=== PATIENT | female | born 1960 | race Caucasian/White ===

== ENCOUNTER → 2016-02-22 | Outpatient (REF) | payer OTHER ==
[2016-02-22 12:26] LABS: THYROXINE (T4) 8.2 UG/DL (4.5-12.0)
== END ==
LOC: M SFHCCLAY 09:21
PROVIDERS: ATTEND Family Medicine
DX: E03.9 Hypothyroidism, unspecified (principal)

== ENCOUNTER → 2016-04-11 | Outpatient (CLI) | payer OTHER ==
--- NOTE | 2016-04-11 09:26 | REPMRS ---
Patient History The patient states she had a clinical breast exam in Patient is postmenopausal and had first child at age 36. Family history of ovarian cancer in mother at age 55 and breast cancer in paternal cousin at age 50 or over. Benign stereotatic breast biopsy of the left breast, October 14, 2008. Benign stereotatic breast biopsy of the right breast, 1998. Digital Woman Screen Mammo: April 11, 2016 - Exam #: [id number] Bilateral CC and MLO view(s) were taken. Technologist: Genna Santamaria, Technologist Prior study comparison: April 08, 2015, digital woman screen mammo performed at [facility]. April 07, 2014, digital woman screen mammo performed at [facility]. FINDINGS: There are scattered fibroglandular densities. There has been no change in the appearance of the mammogram from the prior studies. There is a mild amount of residual fibroglandular tissue which is fairly symmetric. There is no interval development of dominant mass, architectural distortion, or clustered microcalcification suggestive of malignancy. Single stereotactic clip in UOQ right breast and noon position left breast. Scattered lymph nodes are seen in the axilla.There are scattered, small, benign calcifications of doubtful clinical significance. No significant changes when compared with prior studies. ASSESSMENT: BI-RADS/ACR category 2 mammogram. Benign finding(s). Recommendation Routine screening mammogram in 1 year (for women over age 40). This mammogram was interpreted with the aid of an FDA-approved computer-aided dectection system. A. Negative x-ray reports should not delay biopsy if a dominant or clinically suspicious mass is present. B. Four to eight percent of cancers are not identified by mammography. C. Adenosis and dense breast may obscure an underlying neoplasm. Electronically Signed By: Malcolm Downey MD 04/11/16 0995
== END ==
LOC: M WHC 08:32
PROVIDERS: ATTEND Obstetrics & Gynecology
DX: Z01.419 Encounter for gynecological examination (general) (routine) without abnormal findings (principal); Z80.3 Family history of malignant neoplasm of breast

== ENCOUNTER → 2016-08-24 | Outpatient (REF) | payer OTHER | LOC: M SFHCCLAY 09:20 | PROVIDERS: ATTEND Family Medicine | DX: E03.9 Hypothyroidism, unspecified (principal) ==

== ENCOUNTER → 2017-04-16 | Outpatient (CLI) | payer OTHER | LOC: M WHC 08:03 | DX: Z01.419 Encounter for gynecological examination (general) (routine) without abnormal findings (principal); Z12.31 Encounter for screening mammogram for malignant neoplasm of breast ==

== ENCOUNTER → 2017-08-30 | Outpatient (REF) | payer OTHER | LOC: M SFHCCLAY 07:59 | DX: E03.9 Hypothyroidism, unspecified (principal) | CPT/HCPCS: 84443 ==

== ENCOUNTER → 2018-04-17 | Outpatient (CLI) | payer OTHER ==
--- NOTE | 2018-04-17 09:50 | REPMRS ---
Patient History The patient states she had a clinical breast exam in 03/2018. Patient is postmenopausal and had first child at age 36. Family history of ovarian cancer at age 55 in mother, breast cancer at age 50 or over in paternal cousin. Benign stereotatic breast biopsy of the left breast, October 14, 2008. Benign stereotatic breast biopsy of the right breast, 1998. No Hormone Replacement Therapy Digital Woman Screen Mammo: April 17, 2018 - Exam #: [id number] Bilateral CC and MLO view(s) were taken. Technologist: Madeleine Chambers, Technologist Prior study comparison: April 16, 2017, digital woman screen mammo performed at [facility]. April 11, 2016, digital woman screen mammo performed at [facility]. April 08, 2015, digital woman screen mammo performed at [facility]. FINDINGS: There are scattered fibroglandular densities. There has been no change in the appearance of the mammogram from the prior studies. There is a mild amount of scattered fibroglandular density which is fairly symmetric. There is no interval development of dominant mass, architectural distortion, or clustered microcalcification suggestive of malignancy. Assessment: BI-RADS/ACR category 2 mammogram. Benign Findings. Recommendation Routine screening mammogram of both breasts in 1 year (for women over age 40). This patient's Lifetime Breast Cancer RIsk is estimated at 11.8 %. This mammogram was interpreted with the aid of an FDA-approved computer-aided dectection system. Electronically Signed By: Al Fuentes MD 04/17/18 0912
== END ==
LOC: M WHC 08:16
PROVIDERS: ATTEND Obstetrics & Gynecology
DX: Z12.31 Encounter for screening mammogram for malignant neoplasm of breast (principal)

== ENCOUNTER → 2018-10-24 | Outpatient (CLI) | payer OTHER ==
--- NOTE | 2018-10-24 11:07 | REP ---
Clinical: Pain. Technique: AP, lateral, bilateral oblique views of the left first digit. Findings: Age-related degenerative changes are appreciated including increased sclerosis at the proximal and distal interphalangeal joints as well as increased sclerosis, subchondral heterogeneity and subtle cystic changes as well as joint space narrowing and mild subluxation at the first carpometacarpal joint. Impression: Arthritic changes primarily involving the carpometacarpal joint. Electronically Signed by Thor Freeman MD 10/24/2018 10:59 A
== END ==
LOC: M CLY 10:32
PROVIDERS: ATTEND Family Medicine
DX: M25.542 Pain in joints of left hand (principal)

== ENCOUNTER → 2018-10-24 | Outpatient (REF) | payer OTHER ==
[2018-10-24 17:04] LABS: ALBUMIN 3.8 GM/DL (3.2-5.2); ALT/SGPT 17 U/L (12-78); BILIRUBIN,TOTAL 0.9 MG/DL (0.2-1.0); BLOOD UREA NITROGEN 18 MG/DL (7-18); CALCIUM LEVEL 9.3 MG/DL (8.8-10.2); CARBON DIOXIDE LEVEL 30 MEQ/L (21-32); CHLORIDE LEVEL 104 MEQ/L (98-107); CHOLESTEROL LEVEL 218 MG/DL (<200); CHOLESTEROL RISK RATIO 3.758 (<5); CREATININE FOR GFR 0.96 MG/DL (0.55-1.30); GLOMERULAR FILTRATION RATE > 60.0 (>45); GLUCOSE, FASTING 95 MG/DL (70-100); HDL CHOLESTEROL 58 MG/DL (>40); LDL CHOLESTEROL 130 MG/DL (<100); NON-HDL-C 160 MG/DL; POTASSIUM SERUM 4.4 MEQ/L (3.5-5.1); SODIUM LEVEL 139 MEQ/L (136-145); TRIGLYCERIDES LEVEL 152 MG/DL (<150)
== END ==
LOC: M SFHCCLAY 10:04
PROVIDERS: ATTEND Family Medicine
DX: E03.9 Hypothyroidism, unspecified (principal); R03.0 Elevated blood-pressure reading, without diagnosis of hypertension; M25.542 Pain in joints of left hand
CPT/HCPCS: 73140; 80053; 80061; 84443; G0463

== ENCOUNTER → 2019-04-22 | Outpatient (CLI) | payer OTHER ==
--- NOTE | 2019-04-22 10:09 | REPMRS ---
Patient History The patient states she had a clinical breast exam in March 2019. Family history of ovarian cancer at age 55 in mother, breast cancer at age 50 or over in paternal cousin. Benign stereotatic breast biopsy of the left breast, October 14, 2008. Benign stereotatic breast biopsy of the right breast, 1998. No Hormone Replacement Therapy Digital Woman Screen Mammo: April 22, 2019 - Exam #: [id number] Bilateral CC and MLO view(s) were taken. Technologist: Melly An, Technologist Prior study comparison: April 17, 2018, bilateral digital woman screen mammo performed at [facility]. April 16, 2017, digital woman screen mammo performed at [facility]. April 11, 2016, digital woman screen mammo performed at [facility]. FINDINGS: There are scattered fibroglandular densities. There is a stereotactic needle biopsy marker clip again noted in the upper outer quadrant on the right at approximately the 12 o'clock position on the left. A stable nodular opaque opacity is seen in the right breast adjacent to the marker clip unchanged from multiple prior studies dating back to 2008.There is a moderate amount of residual fibroglandular tissue which is fairly symmetric. There is no interval development of dominant mass, architectural distortion, or grouped microcalcification typical of maligna ncy. There has been no change in the appearance of the mammogram from the prior studies. 3-D tomosynthesis shows no additional findings. Assessment: BI-RADS/ACR category 2 mammogram. Benign Findings. Recommendation Routine screening mammogram of both breasts in 1 year (for women over age 40). This patient's Lifetime Breast Cancer RIsk is estimated at 11.4 %. This mammogram was interpreted with the aid of an FDA-approved computer-aided dectection system. Electronically Signed By: Al Fuentes MD 04/22/19 0938
--- NOTE | 2019-04-29 13:37 | DEXA ---
AP SPINE L1 - L4 0.870 -2.6 -1.4 LT FEMUR TOTAL 0.767 -1.9 -0.9 LT NECK 0.796 -1.7 -0.5 RT FEMUR TOTAL 0.783 -1.8 -0.8 RT NECK 0.784 -1.8 -0.6 TOTAL BODY TOTAL OTHER COMMENTS: There is low bone density of the hips. There is osteoporosis of the spine. The density of the spine has decreased 6.8% since the initial exam on 09/04/2008. The spine density has increased 0.7% since the most recent exam on 04/13/2011. The density of the left hip has decreased 12.1% since the initial exam on 09/04/2008. The density of the left hip has decreased 9.9% since the most recent exam on 04/13/2011. The density of the right hip has decreased 12.2% since the initial exam on 09/04/2008. The density of the right hip has decreased 9.6% since the most recent exam on 04/13/2011. FOLLOW-UP: Recommendation for the next bone density exam: 2 years. ASYA
== END ==
LOC: M WHC 07:56
PROVIDERS: ATTEND Obstetrics & Gynecology
DX: Z12.31 Encounter for screening mammogram for malignant neoplasm of breast (principal); Z80.41 Family history of malignant neoplasm of ovary; Z80.3 Family history of malignant neoplasm of breast; M81.0 Age-related osteoporosis without current pathological fracture; M85.852 Other specified disorders of bone density and structure, left thigh; M85.851 Other specified disorders of bone density and structure, right thigh

== ENCOUNTER → 2019-09-19 | Outpatient (CLI) | payer SELFPAY | LOC: M LABSMTC 13:20 | PROVIDERS: ATTEND Pediatrics | DX: Z11.59 Encounter for screening for other viral diseases (principal); Z20.828 Contact with and (suspected) exposure to other viral communicable diseases | CPT/HCPCS: C9803; U0003 ==

== ENCOUNTER → 2019-11-21 | Outpatient (REF) | payer OTHER ==
[2019-11-21 12:40] LABS: BASO # 0.1 10^3/uL (0.0-0.2); EOS # 0.3 10^3/uL (0.0-0.5); EOS % 2.8 % (0.0-3.0); HEMATOCRIT 41.6 % (36.0-47.0); HEMOGLOBIN 14.1 g/dl (12.0-15.5); LYMPH # 2.5 10^3/uL (1.5-5.0); LYMPH % 26.2 % (24.0-44.0); MEAN CORPUSCULAR HEMOGLOBIN 31.3 pg (27.0-33.0); MEAN CORPUSCULAR HGB CONC 33.9 g/dl (32.0-36.5); MEAN CORPUSCULAR VOLUME 92.4 fl (80.0-96.0); MONO # 0.7 10^3/uL (0.0-0.8); MONO % 7.7 % (0.0-5.0); NEUTROPHILS # 5.9 10^3/uL (1.5-8.5); PLATELET COUNT, AUTOMATED 328 10^3/uL (150-450); WHITE BLOOD COUNT 9.4 10^3/uL (4.0-10.0)
[2019-11-21 13:25] LABS: ALBUMIN 3.7 GM/DL (3.2-5.2); ALT/SGPT 19 U/L (12-78); BILIRUBIN,TOTAL 1.4 MG/DL (0.2-1.0); BLOOD UREA NITROGEN 23 MG/DL (7-18); CALCIUM LEVEL 9.5 MG/DL (8.8-10.2); CARBON DIOXIDE LEVEL 31 MEQ/L (21-32); CHLORIDE LEVEL 104 MEQ/L (98-107); CHOLESTEROL LEVEL 211 MG/DL (<200); CHOLESTEROL RISK RATIO 3.246 (<5); CREATININE FOR GFR 0.97 MG/DL (0.55-1.30); GLOMERULAR FILTRATION RATE > 60.0 (>45); GLUCOSE, FASTING 105 MG/DL (70-100); HDL CHOLESTEROL 65 MG/DL (>40); LDL CHOLESTEROL 127 MG/DL (<100); NON-HDL-C 146 MG/DL; POTASSIUM SERUM 4.2 MEQ/L (3.5-5.1); SODIUM LEVEL 139 MEQ/L (136-145); TOTAL PROTEIN 6.9 GM/DL (6.4-8.2); TRIGLYCERIDES LEVEL 93 MG/DL (<150)
== END ==
LOC: M SFHCCLAY 08:24
PROVIDERS: ATTEND Family Medicine
DX: E03.9 Hypothyroidism, unspecified (principal); R03.0 Elevated blood-pressure reading, without diagnosis of hypertension; M25.562 Pain in left knee; M17.12 Unilateral primary osteoarthritis, left knee; M85.862 Other specified disorders of bone density and structure, left lower leg
CPT/HCPCS: 73564; 80053; 80061; 84443; 85025; G0463

== ENCOUNTER → 2019-11-21 | Outpatient (CLI) | payer OTHER ==
--- NOTE | 2019-12-01 17:05 | REP ---
LEFT KNEE SERIES: 5-VIEWS HISTORY: Pain in the left knee. No trauma or injury. FINDINGS: Five views of the left knee show mild diffuse osteopenia. There is osteoarthritic sclerosis and mild joint space narrowing in the lateral compartment. Mild medial compartment spurring is seen. There is early osteophytic lipping at the articular margins of the patella. No evidence of joint effusion or fracture seen. IMPRESSION: Mild three-compartment osteoarthritic changes. Diffuse osteopenia. No acute bony abnormality. MTDD
== END ==
LOC: M CLY 08:48
PROVIDERS: ATTEND Family Medicine
DX: M25.562 Pain in left knee (principal)

== ENCOUNTER → 2020-02-26 | Outpatient (CLI) | payer OTHER ==
--- NOTE | 2020-02-26 12:00 | REP ---
INDICATION: ACUTE PAIN OF RIGHT KNEE COMPARISON: None. TECHNIQUE: AP, lateral, bilateral oblique and sunrise views. FINDINGS: Mild tricompartmental degenerative changes are appreciated without obvious acute fracture or dislocation. Lateral view suggests suprapatellar effusion of uncertain etiology. No subcutaneous emphysema or foreign body. IMPRESSION: Moderate suprapatellar effusion suggested. No acute fracture or dislocation. <Electronically signed by Thor Freeman > 02/26/20 1157
== END ==
LOC: M CLY 11:36
PROVIDERS: ATTEND Family Medicine
DX: M25.461 Effusion, right knee (principal)

== ENCOUNTER → 2020-02-26 | Outpatient (REF) | payer OTHER ==
[2020-02-26 16:17] LABS: BASO # 0.1 10^3/uL (0.0-0.2); BASO % 0.9 % (0.0-1.0); EOS # 0.2 10^3/uL (0.0-0.5); EOS % 2.4 % (0.0-3.0); HEMATOCRIT 41.9 % (36.0-47.0); HEMOGLOBIN 14.1 g/dl (12.0-15.5); LYMPH # 2.8 10^3/uL (1.5-5.0); LYMPH % 28.2 % (24.0-44.0); MEAN CORPUSCULAR HEMOGLOBIN 31.5 pg (27.0-33.0); MEAN CORPUSCULAR HGB CONC 33.7 g/dl (32.0-36.5); MEAN CORPUSCULAR VOLUME 93.7 fl (80.0-96.0); MONO # 0.8 10^3/uL (0.0-0.8); MONO % 8.3 % (0.0-5.0); NEUTROPHILS # 5.9 10^3/uL (1.5-8.5); PLATELET COUNT, AUTOMATED 340 10^3/uL (150-450); RED BLOOD COUNT 4.47 10^6/uL (4.00-5.40); WHITE BLOOD COUNT 9.9 10^3/uL (4.0-10.0)
[2020-02-26 16:50] LABS: ALT/SGPT 32 U/L (12-78); BILIRUBIN,TOTAL 0.8 MG/DL (0.2-1.0); BLOOD UREA NITROGEN 28 MG/DL (7-18); CALCIUM LEVEL 9.9 MG/DL (8.8-10.2); CARBON DIOXIDE LEVEL 33 MEQ/L (21-32); CHLORIDE LEVEL 107 MEQ/L (98-107); CREATININE FOR GFR 0.98 MG/DL (0.55-1.30); GLOMERULAR FILTRATION RATE > 60.0 (>45); GLUCOSE, FASTING 86 MG/DL (70-100); POTASSIUM SERUM 4.1 MEQ/L (3.5-5.1); SODIUM LEVEL 140 MEQ/L (136-145); TOTAL PROTEIN 7.2 GM/DL (6.4-8.2); URIC ACID 5.1 MG/DL (2.6-6.0)
[2020-02-26 18:05] LABS: ERYTHROCYTE SEDIMENTATION RATE 39 mm/hr (0-30)
[2020-03-01 06:06] LABS: ANA (HEP2) Negative (.); CYCLIC CITRULLINATED PEPTIDE 7 units (0-19)
== END ==
LOC: M SFHCCLAY 11:26
PROVIDERS: ATTEND Family Medicine
DX: M25.561 Pain in right knee (principal); M25.562 Pain in left knee; M25.542 Pain in joints of left hand; M25.461 Effusion, right knee
CPT/HCPCS: 73564; 80053; 84550; 85025; 85652; 86038; 86140; 86200; G0463

== ENCOUNTER → 2020-04-22 | Outpatient (CLI) | payer OTHER ==
--- NOTE | 2020-04-22 10:46 | REP ---
INDICATION: Z12.31 SCREENING MAMMO. COMPARISON: 04/22/2019 as well as other prior exams. TECHNIQUE: MLO and CC views bilateral breasts with tomosynthesis. FINDINGS: Moderate heterogeneous fibroglandular tissue is present bilaterally. Parenchymal pattern is unchanged. Biopsy clip is again seen in the anterior lateral right breast and upper outer quadrant left breast. There is no new mass or architectural distortion. However there are tiny calcifications in the medial right breast for which magnification views are recommended. The Volpara volumetric breast density pattern is B. IMPRESSION: BIRADS/ACR category 0, incomplete. Tiny calcifications medial right breast. Recommend magnification views to further evaluate This patient's Tyrer-Cuzick lifetime breast cancer risk assessment score is 11.1%. This mammogram was interpreted with the aid of an FDA-approved computer-aided detection system. The patient states she had a clinical breast exam in March 2020. The patient letter being requested is M0. RECOMMENDATION: Recommend magnification views right breast as discussed above. <Electronically signed by Maxwell Rutherford > 04/22/20 [id number]
== END ==
LOC: M WHC 08:01
PROVIDERS: ATTEND Obstetrics & Gynecology
DX: Z12.31 Encounter for screening mammogram for malignant neoplasm of breast (principal); N63.15 Unspecified lump in the right breast, overlapping quadrants

== ENCOUNTER → 2020-05-10 | Outpatient (CLI) | payer OTHER ==
--- NOTE | 2020-05-10 09:43 | REP ---
INDICATION: ADDL VIEWS/RIGHT BREAST/CALC. Microcalcifications observed on the screening study from April 22, 2020. Diagnostic imaging was recommended. COMPARISON: Comparison mammography April 22, 2020 and April 22, 2019. TECHNIQUE: Magnified focal spot-compression CC, mL, and MLO views of the right breast are obtained. 3D tomography in the medial-lateral plane is utilized. This mammogram was interpreted with the aid of an FDA-approved computer-aided detection system. FINDINGS: Scattered fibroglandular elements are seen. Magnified views confirm the presence of a grouping of 5-6 slightly coarse microcalcifications in the superomedial quadrant of the right breast there are other similar non grouped calcifications elsewhere bilaterally which are not felt to be suspicious. This grouping of 5-6 calcifications merit some suspicion however. There is a marker clip in the right breast more anteriorly and laterally from a previous benign biopsy. IMPRESSION: BIRADS/ACR category 4 suspicious right breast mammographic . Grouping of microcalcifications superomedial quadrant. Suspicious abnormality, biopsy should be considered.. This patient's Tyrer-Cuzick lifetime breast cancer risk assessment score is 11.1%. RECOMMENDATION: Stereotactic needle biopsy recommended right breast with clip placement and post clip placement right breast mammography.. The patient letter being requested is M4. <Electronically signed by Al Fuentes > 05/10/20 [id number]
== END ==
LOC: M WHC 08:59
PROVIDERS: ATTEND Obstetrics & Gynecology
DX: R92.1 Mammographic calcification found on diagnostic imaging of breast (principal)
CPT/HCPCS: 77065; G0279

== ENCOUNTER → 2020-11-19 | Outpatient (REF) | payer OTHER ==
[2020-11-19 15:19] LABS: BASO # 0.1 10^3/uL (0.0-0.2); BASO % 1.3 % (0.0-1.0); EOS # 0.3 10^3/uL (0.0-0.5); EOS % 3.5 % (0.0-3.0); HEMATOCRIT 42.2 % (36.0-47.0); HEMOGLOBIN 14.4 g/dl (12.0-15.5); LYMPH # 2.4 10^3/uL (1.5-5.0); LYMPH % 29.8 % (24.0-44.0); MEAN CORPUSCULAR HEMOGLOBIN 31.5 pg (27.0-33.0); MEAN CORPUSCULAR HGB CONC 34.1 g/dl (32.0-36.5); MEAN CORPUSCULAR VOLUME 92.3 fl (80.0-96.0); MONO # 0.8 10^3/uL (0.0-0.8); MONO % 10.4 % (2.0-8.0); NEUTROPHILS # 4.4 10^3/uL (1.5-8.5); NEUTROPHILS % 54.7 % (36.0-66.0); PLATELET COUNT, AUTOMATED 325 10^3/uL (150-450); RED BLOOD COUNT 4.57 10^6/uL (4.00-5.40)
[2020-11-19 15:35] LABS: ALBUMIN 3.8 GM/DL (3.2-5.2); BILIRUBIN,TOTAL 1.6 MG/DL (0.2-1.0); CALCIUM LEVEL 9.6 MG/DL (8.8-10.2); CHOLESTEROL RISK RATIO 2.985 (<5); CREATININE FOR GFR 1.01 MG/DL (0.55-1.30); GLOMERULAR FILTRATION RATE 59.1 (>45); POTASSIUM SERUM 4.1 MEQ/L (3.5-5.1); THYROID STIMULATING HORMONE 3.16 uIU/ML (0.358-3.740); TOTAL PROTEIN 7.1 GM/DL (6.4-8.2)
== END ==
LOC: M SFHCCLAY 09:05
PROVIDERS: ATTEND Family Medicine
DX: E03.9 Hypothyroidism, unspecified (principal); I10 Essential (primary) hypertension; E78.2 Mixed hyperlipidemia
CPT/HCPCS: 80053; 80061; 84443; 85025; G0463

== ENCOUNTER → 2021-04-28 | Outpatient (CLI) | payer OTHER | LOC: M WHC 09:52 | PROVIDERS: ATTEND Obstetrics & Gynecology | DX: Z13.820 Encounter for screening for osteoporosis (principal); M85.89 Other specified disorders of bone density and structure, multiple sites ==

== ENCOUNTER → 2021-05-20 | Outpatient (REF) | payer OTHER ==
[2021-05-20 11:42] LABS: BASO # 0.1 10^3/uL (0.0-0.2); BASO % 0.9 % (0.0-1.0); EOS # 0.3 10^3/uL (0.0-0.5); EOS % 3.4 % (0.0-3.0); HEMATOCRIT 40.8 % (36.0-47.0); LYMPH # 2.4 10^3/uL (1.5-5.0); LYMPH % 26.9 % (24.0-44.0); MEAN CORPUSCULAR HEMOGLOBIN 30.9 pg (27.0-33.0); MEAN CORPUSCULAR HGB CONC 34.3 g/dl (32.0-36.5); MEAN CORPUSCULAR VOLUME 90.1 fl (80.0-96.0); MONO # 0.9 10^3/uL (0.0-0.8); MONO % 9.5 % (2.0-8.0); NEUTROPHILS # 5.2 10^3/uL (1.5-8.5); NEUTROPHILS % 58.7 % (36.0-66.0); PLATELET COUNT, AUTOMATED 325 10^3/uL (150-450); RED BLOOD COUNT 4.53 10^6/uL (4.00-5.40); WHITE BLOOD COUNT 8.9 10^3/uL (4.0-10.0)
[2021-05-20 12:03] LABS: HEMOGLOBIN A1c 6.2 %
[2021-05-20 12:23] LABS: ALBUMIN 3.8 GM/DL (3.2-5.2); ALT/SGPT 36 U/L (12-78); BILIRUBIN,TOTAL 1.2 MG/DL (0.2-1.0); BLOOD UREA NITROGEN 20 MG/DL (7-18); CALCIUM LEVEL 9.3 MG/DL (8.8-10.2); CARBON DIOXIDE LEVEL 33 MEQ/L (21-32); CHLORIDE LEVEL 101 MEQ/L (98-107); GLOMERULAR FILTRATION RATE > 60.0 (>45); GLUCOSE, FASTING 93 MG/DL (70-100); POTASSIUM SERUM 3.8 MEQ/L (3.5-5.1); SODIUM LEVEL 138 MEQ/L (136-145); TOTAL PROTEIN 7.1 GM/DL (6.4-8.2)
[2021-05-20 12:42] LABS: VITAMIN B12 LEVEL 1238 PG/ML (247-911)
[2021-05-20 12:43] LABS: FOLATE 15.4 NG/ML (>5.4)
== END ==
LOC: M SFHCCLAY 09:08
PROVIDERS: ATTEND Family Medicine
DX: E03.9 Hypothyroidism, unspecified (principal); R73.01 Impaired fasting glucose; G62.9 Polyneuropathy, unspecified
CPT/HCPCS: 80053; 82607; 82746; 83036; 84443; 85025; G0463

== ENCOUNTER → 2021-09-05 | Outpatient (CLI) | payer OTHER | LOC: M CLY 11:36 | PROVIDERS: ATTEND Family Medicine | DX: M77.31 Calcaneal spur, right foot (principal) | CPT/HCPCS: 73630; G0463 ==

== ENCOUNTER → 2021-11-22 | Outpatient (REF) | payer OTHER ==
[2021-11-22 18:06] LABS: HEMOGLOBIN A1c 5.9 %
[2021-11-22 18:39] LABS: ALBUMIN 3.8 GM/DL (3.2-5.2); ALT/SGPT 17 U/L (12-78); BLOOD UREA NITROGEN 23 MG/DL (7-18); CALCIUM LEVEL 9.3 MG/DL (8.8-10.2); CARBON DIOXIDE LEVEL 28 MEQ/L (21-32); CHLORIDE LEVEL 103 MEQ/L (98-107); CHOLESTEROL LEVEL 232 MG/DL (<200); CHOLESTEROL RISK RATIO 3.625 (<5); CREATININE FOR GFR 0.88 MG/DL (0.55-1.30); GLOMERULAR FILTRATION RATE > 60.0 (>45); GLUCOSE, FASTING 107 MG/DL (70-100); HDL CHOLESTEROL 64 MG/DL (>40); LDL CHOLESTEROL 144 MG/DL (<100); NON-HDL-C 168 MG/DL; POTASSIUM SERUM 4.2 MEQ/L (3.5-5.1); SODIUM LEVEL 136 MEQ/L (136-145); TOTAL PROTEIN 7.6 GM/DL (6.4-8.2); TRIGLYCERIDES LEVEL 120 MG/DL (<150)
== END ==
LOC: M SFHCCLAY 10:23
PROVIDERS: ATTEND Family Medicine
DX: E78.2 Mixed hyperlipidemia (principal); R73.01 Impaired fasting glucose
CPT/HCPCS: 80053; 80061; 83036; 84443; G0463

== ENCOUNTER → 2022-03-16 | Outpatient (CLI) | payer OTHER | LOC: M CLY 10:42 | PROVIDERS: ATTEND Family Medicine | DX: M25.559 Pain in unspecified hip (principal); M17.0 Bilateral primary osteoarthritis of knee; M16.0 Bilateral primary osteoarthritis of hip; M47.816 Spondylosis without myelopathy or radiculopathy, lumbar region ==

== ENCOUNTER → 2022-05-23 | Outpatient (REF) | payer OTHER ==
[2022-05-23 20:19] LABS: ALBUMIN 3.8 G/DL (3.2-5.2); ALKALINE PHOSPHATASE 85 U/L (46-116); ALT/SGPT 16 U/L (7.0-40); AST/SGOT 14 U/L (<34); BILIRUBIN,TOTAL 0.9 MG/DL (0.3-1.2); BLOOD UREA NITROGEN 23 MG/DL (9-23); CALCIUM LEVEL 9.3 MG/DL (8.3-10.6); CARBON DIOXIDE LEVEL 29 MMOL/L (20-31); CHLORIDE LEVEL 103 MMOL/L (98-107); CREATININE FOR GFR 0.95 MG/DL (0.55-1.30); GLOMERULAR FILTRATION RATE > 60.0 (>45); GLUCOSE, FASTING 93 MG/DL (74-106); POTASSIUM SERUM 4.3 MMOL/L (3.5-5.1); SODIUM LEVEL 138 MMOL/L (136-145)
[2022-05-23 20:21] LABS: FREE T4 1.45 NG/DL (0.89-1.76); HEMOGLOBIN A1c 5.8 % (4.0-6.0); THYROID STIMULATING HORMONE 1.838 uIU/ML (0.55-4.78)
== END ==
LOC: M SFHCCLAY 10:29
PROVIDERS: ATTEND Family Medicine
DX: I10 Essential (primary) hypertension (principal); E03.9 Hypothyroidism, unspecified; R73.01 Impaired fasting glucose
CPT/HCPCS: 80053; 83036; 84439; 84443; G0463

== ENCOUNTER → 2022-11-27 | Outpatient (REF) | payer OTHER ==
[2022-11-27 18:08] LABS: HEMATOCRIT 41.5 % (36.0-47.0); HEMOGLOBIN 14.2 g/dl (12.0-15.5); MEAN CORPUSCULAR HEMOGLOBIN 31.6 pg (27.0-33.0); MEAN CORPUSCULAR HGB CONC 34.2 g/dl (32.0-36.5); MEAN CORPUSCULAR VOLUME 92.2 fl (80.0-96.0); PLATELET COUNT, AUTOMATED 388 10^3/uL (150-450); WHITE BLOOD COUNT 10.5 10^3/uL (4.0-10.0)
[2022-11-27 18:35] LABS: HEMOGLOBIN A1c 5.4 % (4.0-6.0)
[2022-11-27 18:50] LABS: ALBUMIN 3.9 G/DL (3.2-5.2); BILIRUBIN,TOTAL 1.1 MG/DL (0.3-1.2); CHOLESTEROL RISK RATIO 3.34 (<5); CREATININE FOR GFR 1.03 MG/DL (0.55-1.30); FREE T4 1.4 NG/DL (0.89-1.76); GLOMERULAR FILTRATION RATE 57.4 (>45); POTASSIUM SERUM 4.3 MMOL/L (3.5-5.1); THYROID STIMULATING HORMONE 4.515 uIU/ML (0.55-4.78)
== END ==
LOC: M SFHCCLAY 10:37
PROVIDERS: ATTEND Family Medicine
DX: I10 Essential (primary) hypertension (principal); E03.9 Hypothyroidism, unspecified; E78.2 Mixed hyperlipidemia; R73.01 Impaired fasting glucose

== ENCOUNTER → 2023-03-16 | Outpatient (REF) | payer OTHER | LOC: M SFHCCLAY 09:11 | PROVIDERS: ATTEND Physician Assistant | DX: R30.0 Dysuria (principal) ==

== ENCOUNTER → 2023-03-16 | Outpatient (CLI) | payer OTHER | LOC: M CLY 09:17 | PROVIDERS: ATTEND Physician Assistant | DX: M51.36 Other intervertebral disc degeneration, lumbar region (principal) | CPT/HCPCS: 72110; G0463 ==

== ENCOUNTER → 2023-05-31 | Outpatient (REF) | payer OTHER ==
[2023-05-31 18:30] LABS: HEMATOCRIT 41.9 % (36.0-47.0); HEMOGLOBIN 14.4 g/dl (12.0-15.5); MEAN CORPUSCULAR HEMOGLOBIN 31.4 pg (27.0-33.0); MEAN CORPUSCULAR HGB CONC 34.4 g/dl (32.0-36.5); MEAN CORPUSCULAR VOLUME 91.5 fl (80.0-96.0); PLATELET COUNT, AUTOMATED 359 10^3/uL (150-450); RED BLOOD COUNT 4.58 10^6/uL (4.00-5.40); WHITE BLOOD COUNT 10.3 10^3/uL (4.0-10.0)
[2023-05-31 18:33] LABS: FREE T4 1.38 NG/DL (0.89-1.76)
[2023-05-31 18:36] LABS: HEMOGLOBIN A1c 5.7 % (4.0-6.0)
[2023-05-31 18:37] LABS: ALBUMIN 3.8 G/DL (3.2-5.2); ALKALINE PHOSPHATASE 90 U/L (46-116); ALT/SGPT 19 U/L (7.0-40); AST/SGOT 15 U/L (<34); BILIRUBIN,TOTAL 1.1 MG/DL (0.3-1.2); BLOOD UREA NITROGEN 25 MG/DL (9-23); CALCIUM LEVEL 9.5 MG/DL (8.3-10.6); CARBON DIOXIDE LEVEL 31 MMOL/L (20-31); CHLORIDE LEVEL 103 MMOL/L (98-107); CREATININE FOR GFR 0.98 MG/DL (0.55-1.30); GLOMERULAR FILTRATION RATE > 60.0 (>45); GLUCOSE, FASTING 93 MG/DL (74-106); POTASSIUM SERUM 4.4 MMOL/L (3.5-5.1); SODIUM LEVEL 140 MMOL/L (136-145); TOTAL PROTEIN 6.9 G/DL (5.7-8.2)
== END ==
LOC: M SFHCCLAY 09:56
PROVIDERS: ATTEND Family Medicine
DX: I10 Essential (primary) hypertension (principal); E03.9 Hypothyroidism, unspecified; R73.01 Impaired fasting glucose

== ENCOUNTER → 2023-12-25 | Outpatient (REF) | payer MEDICARE, OTHER ==
[2023-12-25 11:43] LABS: HEMATOCRIT 40.2 % (36.0-47.0); HEMOGLOBIN 13.8 g/dl (12.0-15.5); MEAN CORPUSCULAR HEMOGLOBIN 30.8 pg (27.0-33.0); MEAN CORPUSCULAR HGB CONC 34.3 g/dl (32.0-36.5); MEAN CORPUSCULAR VOLUME 89.7 fl (80.0-96.0); PLATELET COUNT, AUTOMATED 351 10^3/uL (150-450); RED BLOOD COUNT 4.48 10^6/uL (4.00-5.40)
[2023-12-25 12:00] LABS: HEMOGLOBIN A1c 5.8 % (4.0-6.0)
[2023-12-25 12:18] LABS: ALBUMIN 3.7 G/DL (3.2-5.2); BILIRUBIN,TOTAL 1.1 MG/DL (0.3-1.2); CALCIUM LEVEL 9.4 MG/DL (8.3-10.6); CHOLESTEROL RISK RATIO 4.01 (<5); GLOMERULAR FILTRATION RATE 59.2 (>45); HDL CHOLESTEROL 57.1 MG/DL (>40); LDL CHOLESTEROL 145.1 MG/DL (<100); NON-HDL-C 171.9 MG/DL; POTASSIUM SERUM 4.1 MMOL/L (3.5-5.1); THYROID STIMULATING HORMONE 2.033 uIU/ML (0.55-4.78)
== END ==
LOC: M SFHCCLAY 08:00
PROVIDERS: ATTEND Family Medicine
DX: I10 Essential (primary) hypertension (principal); R73.01 Impaired fasting glucose; E78.2 Mixed hyperlipidemia; E03.9 Hypothyroidism, unspecified

== ENCOUNTER → 2024-06-26 | Outpatient (REF) | payer MEDICARE, OTHER ==
[2024-06-26 12:44] LABS: HEMATOCRIT 42.1 % (36.0-47.0); HEMOGLOBIN 14.4 g/dl (12.0-15.5); MEAN CORPUSCULAR HEMOGLOBIN 31.5 pg (27.0-33.0); MEAN CORPUSCULAR HGB CONC 34.2 g/dl (32.0-36.5); MEAN CORPUSCULAR VOLUME 92.1 fl (80.0-96.0); PLATELET COUNT, AUTOMATED 326 10^3/uL (150-450); RED BLOOD COUNT 4.57 10^6/uL (4.00-5.40); WHITE BLOOD COUNT 7.3 10^3/uL (4.0-10.0)
[2024-06-26 12:50] LABS: FREE T4 1.41 NG/DL (0.89-1.76); THYROID STIMULATING HORMONE 2.261 uIU/ML (0.55-4.78)
[2024-06-26 12:54] LABS: ALBUMIN 3.7 G/DL (3.2-5.2); BILIRUBIN,TOTAL 0.9 MG/DL (0.3-1.2); CHOLESTEROL RISK RATIO 3.68 (<5); CREATININE FOR GFR 0.93 MG/DL (0.55-1.30); GLOMERULAR FILTRATION RATE 67.8 (>45); HDL CHOLESTEROL 59.2 MG/DL (>40); LDL CHOLESTEROL 144.8 MG/DL (<100); NON-HDL-C 158.8 MG/DL; POTASSIUM SERUM 3.9 MMOL/L (3.5-5.1)
[2024-06-26 13:02] LABS: HEMOGLOBIN A1c 5.8 % (4.0-6.0)
== END ==
LOC: M SFHCCLAY 08:41
PROVIDERS: ATTEND Family Medicine
DX: I10 Essential (primary) hypertension (principal); E03.9 Hypothyroidism, unspecified; R73.01 Impaired fasting glucose; E78.2 Mixed hyperlipidemia